=== PATIENT | male | born 1955 | race Caucasian/White ===

== ENCOUNTER → 2019-01-02 10:12 | Outpatient (POV) | payer BC, SELFPAY | PROVIDERS: Visit Provider Internal Medicine | DX: Z00.00 Encounter for general adult medical examination without abnormal findings (principal) ==

== ENCOUNTER → 2019-01-24 08:50 | Outpatient (POV) | payer BC, SELFPAY | PROVIDERS: Visit Provider Internal Medicine | DX: Z00.00 Encounter for general adult medical examination without abnormal findings (principal) ==

== ENCOUNTER → 2019-01-25 13:03 | Outpatient (CLI) | payer BC, SELFPAY ==
[2019-01-25 13:55] VITALS: PULSE 74; PULSE 79
[2019-01-25 14:20] VITALS: BP 125/76; BP 132/80; PULSE 102; PULSE 79; RESP 14; RESP 20; O2SAT 86; O2SAT 91
--- NOTE | 2019-01-25 14:33 | CT_ITS ---
CT lung screening EXAM: CT LUNG LOW DOSE WO CONTRAST HISTORY: 200 pack-year smoking history, asymptomatic for lung cancer ITS.REASON: HO/NICOTINE DEPENDENCE ORDERING PHYSICIAN: Noman Daniels MD PATIENT AGE: 63 years COMPARISON: 05/08/2015 TECHNIQUE: The exam was performed on a GE Light Speed [address] scanner using 2.90 mGy CTDI. A low dose helical CT CHEST was performed on a multi-detector scanner. All CT scans at the facility use one or more dose reduction, viz: automated exposure control, ma/kV adjustment per patient size (including targeted exams where dose is matched to indication, i.e. head), or iterative reconstruction technique. The LDCT was performed in a facility that meets the criteria for the screening program. Data regarding this exam was submitted to [employer] which is an approved registry. The order for this exam indicates that it came as a result of a lung cancer screening counseling shard decision-making visit that included all the elements required of such a visit including smoking cessation. The radiologist interpreting this exam meets the CMS criteria for the LDCT lung cancer screening program. The exam is reported using the Lung-RADS classification scale and reported to the ACR registry. NOTE: This study was performed for the specific purposes of lung cancer screening and is not an alternative to diagnostic chest CT. RADIATION DOSE: CTDI vol(CT dose Index-volume) = 2.90mG DLP (Dose Length Product) = 109.94 mGcm FINDINGS: COPD Old granulomatous disease Stable 4 mm nodule adjacent to the major fissure in the right lower lobe axial image #47. Chronic change right apex stable 9 mm noncalcified nodular opacity versus dilated vessel left lower lobe series 4 #64 not significant changed Stable 5 mm nodule left upper lobe image #49. Small nodes are present in the mediastinum are stable. There are coronary artery calcifications. IMPRESSION: 1. Lung RADS Category: 2, benign 2. Other findings: COPD, coronary artery calcification, old granulomatous disease RECOMMENDATIONS: 12 month LDCT follow-up
== END ==
PROVIDERS: PCP Family Medicine; Visit Provider Internal Medicine
DX: Z12.2 Encounter for screening for malignant neoplasm of respiratory organs (principal); Z87.891 Personal history of nicotine dependence; R06.02 Shortness of breath; J44.9 Chronic obstructive pulmonary disease, unspecified
CPT/HCPCS: 94060; 94618; 94640; 94726; 94729

== ENCOUNTER → 2019-03-21 13:00 | Outpatient (POV) | payer BC, SELFPAY | PROVIDERS: Visit Provider Internal Medicine | DX: Z00.00 Encounter for general adult medical examination without abnormal findings (principal) ==

== ENCOUNTER → 2019-04-27 11:21 | Outpatient (CLI) | payer BC, SELFPAY | PROVIDERS: PCP Nurse Practitioner Family; Visit Provider Internal Medicine | DX: J44.9 Chronic obstructive pulmonary disease, unspecified (principal) | CPT/HCPCS: 94618 ==

== ENCOUNTER → 2019-06-20 15:09 | Outpatient (POV) | payer BC, SELFPAY | PROVIDERS: Visit Provider Internal Medicine | DX: Z00.00 Encounter for general adult medical examination without abnormal findings (principal) ==